=== PATIENT | male | born 1975 | race Hispanic/Latino ===

== ENCOUNTER 2024-02-12 14:10 | Emergency (ER) | payer SELFPAY ==
[~2024-02-12] VITALS: Ht 157.5 cm; Wt 62.0 kg
[2024-02-12 14:47] VITALS: BP 119/80
[2024-02-12 15:00] VITALS: BP 109/77
[2024-02-12 15:30] VITALS: BP 125/84
[2024-02-12] MEDS ORDERED: AMOX/K CLAV875 M1 PO (15:35)
[2024-02-12 15:49] VITALS: BP 125/84
== END 2024-02-12 16:41 | disposition home or self-care (01) | DRG 153 ==
LOC: ED 14:10
DX: J02.9 Acute pharyngitis, unspecified (principal)